=== PATIENT | female | born 1990 | race Two or more races ===

== ENCOUNTER 2018-02-24 10:29 | Emergency (ER) | payer MEDICAID ==
[~2018-02-24] VITALS: Ht 160 cm; Wt 49.6 kg
[~2018-02-24 10:29] MED LIST: PREN27TA7 OR
[2018-02-24 10:40] VITALS: BP 104/70
[2018-02-24] MEDS ORDERED: KETOROLAC TROMETH 60MG/2ML VIAL IM ONE (11:45)
== END 2018-02-24 12:28 | disposition home or self-care (01) ==
LOC: ER 10:29
DX: J01.90 Acute sinusitis, unspecified (principal)
CPT/HCPCS: 96372; 99283; J1885